=== PATIENT | male | born 1945 | race Caucasian/White ===

== ENCOUNTER → 2017-12-26 | Outpatient (CLI) | payer MEDICARE, OTHER | LOC: GMAM 12:52 | PROVIDERS: ATTEND Family Medicine | DX: R53.83 Other fatigue (principal); Z12.5 Encounter for screening for malignant neoplasm of prostate | CPT/HCPCS: 84403; 84439; 84443; G0103 ==

== ENCOUNTER → 2019-01-15 | Outpatient (CLI) | payer MEDICARE, OTHER | LOC: GMAM 16:30 | PROVIDERS: ATTEND Family Medicine | DX: Z12.5 Encounter for screening for malignant neoplasm of prostate (principal) ==

== ENCOUNTER → 2020-01-21 | Outpatient (CLI) | payer MEDICARE, OTHER | LOC: GMAM 17:27 | PROVIDERS: ATTEND Family Medicine | DX: Z12.5 Encounter for screening for malignant neoplasm of prostate (principal); I10 Essential (primary) hypertension ==